=== PATIENT | male | born 1950 | race Caucasian/White ===

== ENCOUNTER 2018-03-23 09:15 | Emergency (ER) | payer MEDICARE, OTHER ==
[~2018-03-23] VITALS: Ht 188 cm; Wt 107.0 kg
[2018-03-23 09:31] VITALS: BP 149/84
[2018-03-23] MEDS ORDERED: HYDROcodone/acetaminophen 5mg/325mg tablet PO ONE (09:50)
[2018-03-23] MEDS ORDERED: TETanus/Pertussis (Acell)/Diphther VAC/PF (Tdap-Adult) 0.5ml syringe IM ONE (11:55)
[2018-03-23] MEDS ORDERED: CEPH250T PO (12:42)
[2018-03-23] MEDS ORDERED: HYDR-4383 PO (12:50)
== END 2018-03-23 12:58 | disposition home or self-care (01) ==
LOC: ER 09:15
DX: S81.812A Laceration without foreign body, left lower leg, initial encounter (principal); W26.8XXA Contact with other sharp object(s), not elsewhere classified, initial encounter; Y93.89 Activity, other specified; Y92.89 Other specified places as the place of occurrence of the external cause; Y99.8 Other external cause status
CPT/HCPCS: 12002; 90471; 90715; 99283